=== PATIENT | female | born 1965 | race Caucasian/White ===

== ENCOUNTER → 2016-04-16 | Outpatient (CLI) | payer OTHER ==
[2016-04-16 18:07] LABS: BASO % 0.3 %; BASO ABS # 0.02 K/uL (0-0.2); EOS % 4.7 %; HEMATOCRIT 34.3 % (37-47); IG% 0.3 %; LYMPH % 30.6 %; MEAN CORPUSCULAR HEMOGLOBIN 29.8 pg (25-34); MEAN PLATELET VOLUME 9.8 fL (7.4-10.4); NEUT % 59.1 %; PLATELET COUNT 270 K/uL (130-400); RED BLOOD COUNT 3.99 M/uL (4.2-5.4)
[2016-04-16 18:17] LABS: COMPLETE YES; MEAN CORPUSCULAR HGB CONC 34.7 g/dl (32-36)
== END | disposition home or self-care (01) ==
LOC: C.LABMFLN 13:47
PROVIDERS: ATTEND Podiatrist Foot & Ankle Surgery
DX: Z47.89 Encounter for other orthopedic aftercare (principal)